=== PATIENT | male | born 1960 | race Caucasian/White ===

== ENCOUNTER → 2017-09-21 | Day surgery (SDC) | payer OTHER ==
[~2017-09-21] VITALS: Ht 165.1 cm; Wt 85.3 kg
[~2017-09-21] MED LIST: AMLODIPINE PO; ASPIRIN LOW DOS81 M1 PO; BENAZEPRIL PO; COQ10 PO; FENOFIBRATE134 MG PO; FISH OIL500 MG PO; HYDRODIURIL 112.5 M1 PO; MULTIVITAMIN1 TAB PO; PERCOCET 325 MG1 TA2 PO; VITAMIN D31000 IU PO; VYTORIN 10 MG-21 TAB PO; ZOFRAN4 M1 SL
--- NOTE | 2017-09-21 15:43 | Operative Report ---
Operative/Inv Procedure Report Surgery Date: 09/21/17 Name of Procedure: Open ventral hernia repair with mesh Pre-Operative Diagnosis: Incarcerated ventral hernia Post-Operative Diagnosis: Same Estimated Blood Loss: scant Surgeon/Loss Prevention/Safety District Manager: Edy JULIAN,Mohinder Watts/José Luis VAN Anesthesia: laryngeal mask airway Implants: Ventral X mesh 6.4 cm Operative/Procedure Note Note: After informed consent patient brought to the operating room and laid supine. Gen. anesthesia obtained and the abdomen was prepped and draped. The periumbilical tissues were infiltrated with a cocktail local anesthesia. A curvilinear incision was made sharply. We dissected down to the umbilical stalk and circumferentially dissected it bluntly. The stock was then transected with cautery, thus exposing the defect. The hernia sac was circumferentially dissected down to level of fascia and incised the neck with cautery. Contents were then reduced. Preperitoneal planes were then created a circumferential fashion due to the need for preperitoneal mesh placement. We measured the defect. It was 3 cm in greatest dimension transversely. 6.4 cm mesh was chosen as an underlay repair. The mesh was rolled up and placed in the preperitoneal cavity then unraveled below the defect. The fascia was then closed over the mesh with interrupted 0 Maxon sutures, incorporating a portion of the mesh laterally to keep it centered. Wound was irrigated with saline. The umbilical stalk re-created with 3-0 Vicryl. Incision was then closed in layers of Vicryl. Sterile dressings were applied. Sponge and needle counts are correct CC: Ji Bran MD
== END ==
LOC: STS 00:40
DX: K43.6 Other and unspecified ventral hernia with obstruction, without gangrene (principal); I10 Essential (primary) hypertension; M19.90 Unspecified osteoarthritis, unspecified site
CPT/HCPCS: C9399; J2250